=== PATIENT | female | born 1965 ===

== ENCOUNTER 2021-06-23 21:25 | Emergency (ER) | payer OTHER ==
--- NOTE | 2021-06-23 22:51 | Event Note ---
ED Screening Note Date of service: 06/23/21 Time: 22:49 ED Screening Note: Patient 55-year-old female with history of urostomy 1 year ago secondary to bladder CA , Patient states left flank pain radiating to suprapubic with urostomy donor site drainage purulent x1 week. Patient denies fevers however does endorse malaise nausea and abdominal pain. Symptoms are exacerbated by movement. Relieved by nothing tried. Patient not sure of urologist that performed procedure. This is second language patient is a Congolese-speaking son at bedside for translation. This initial assessment/diagnostic orders/clinical plan/treatment(s) is/are subject to change based on patients health status, clinical progression and re- assessment by fellow clinical providers in the ED. Further treatment and workup at subsequent clinical providers discretion. Patient/guardian urged not to elope from the ED as their condition may be serious if not clinically assessed and managed. Initial orders include: CMP, CBC, Lactic Acid, UA, BCx2 , urine culture, IV ,
[2021-06-23 23:21] LABS: Basophils % (Auto) 0.2 % (0.0-1.8); Eosinophils # (Auto) 0.1 K/mm3 (0.0-0.4); Eosinophils % (Auto) 0.7 % (0.0-4.3); Hematocrit 34.8 % (30.3-42.9); Lymphocytes # (Auto) 2.8 K/mm3 (1.2-5.4); Lymphocytes % (Auto) 24.3 % (13.4-35.0); Mean Corpuscular HGB Conc 34 % (30-34); Mean Corpuscular Volume 87 fl (79-97); Monocytes # (Auto) 0.7 K/mm3 (0.0-0.8); Monocytes % (Auto) 6.1 % (0.0-7.3); Platelet Count 317 K/mm3 (140-440); Red Blood Count 4.01 M/mm3 (3.65-5.03); Red Cell Distribution Width 13.8 % (13.2-15.2)
[2021-06-23 23:43] LABS: Calcium 10.1 mg/dL (8.4-10.2)
[2021-06-24] MEDS ORDERED: cefTRIAXone/NS 2 GM/100 ML 2 GM/100 ML BAG IV ONE (00:04)
[2021-06-24] MEDS ORDERED: SODIUM CHLORIDE 0.9% 1000 ML IV SOLN IV ONE (00:04)
[2021-06-24 00:12] LABS: Bacteria,Urine 1+ /HPF (Negative); Bilirubin,Urine NEG (Negative); Blood,Urine LG (Negative); Color,Urine Yellow (Yellow); Mucus,Urine FEW /HPF; Urobilinogen,Urine < 2.0 mg/dL (<2.0)
[2021-06-24 00:13] LABS: WBC,Urine > 182.0 /HPF (0.0-6.0)
--- NOTE | 2021-06-24 00:36 | Emergency Department Report ---
ED Abdominal Pain HPI - General Chief Complaint: Back Pain/Injury Stated Complaint: PAIN ON THE SIDE PUI?: No Time Seen by Provider: 06/24/21 00:02 Source: patient Mode of arrival: Ambulatory Limitations: No Limitations - History of Present Illness Initial Comments: Patient is a 55-year-old female that presents emergency room for left flank pain. Patient states that the pain has been going on for 2 to 3 weeks. Patient states she had surgery in August. Patient states she has had pain since the surgery. Patient states for 2 weeks she had a nephrostomy tube. Patient states approximately 2 to 3 weeks ago she developed a purulent discharge coming from the nephrostomy tube hole in her left flank. Patient states the pain is severe. Patient states she is having fever and chills. Patient denies cough. Patient denies chest pain. Patient denies shortness of breath. Patient denies recent travel. Patient denies recent international travel. Patient denies exposure to the novel coronavirus. Patient denies sick contacts. Patient denies cough. Patient denies diarrhea. Patient denies coming in contact with anybody with symptoms of the novel coronavirus. MD Complaint: flank pain -: Gradual, week(s) Location: L flank Radiation: none Migration to: no migration Severity: severe Severity scale (0 -10): 10 Quality: stabbing Consistency: constant Improves With: rest Worsens With: movement Associated Symptoms: fever, dysuria. denies: nausea, vomiting, diarrhea, chills, constipation, hematemesis, hematochezia, melena, hematuria, syncope - Related Data LMP (females 10-50): unknown Home Medications Medication Instructions Recorded Confirmed Last Taken Loratadine 10 mg PO DAILY 06/24/21 06/24/21 Unknown Meloxicam [Mobic] 15 mg PO DAILY 06/24/21 06/24/21 Unknown Omeprazole 20 mg PO DAILY 06/24/21 06/24/21 Unknown glipiZIDE [Glucotrol] 5 mg PO BID 06/24/21 06/24/21 Unknown lisinopriL [Lisinopril] 10 mg PO DAILY 06/24/21 06/24/21 Unknown traZODone [Desyrel] 50 mg PO QHS 06/24/21 06/24/21 Unknown Allergies Allergy/AdvReac Type Severity Reaction Status Date / Time No Known Allergies Allergy Unverified 06/23/21 21:46 ED Review of Systems ROS: Stated complaint: PAIN ON THE SIDE Other details as noted in HPI Constitutional: chills, fever, malaise Eyes: denies: eye pain, eye discharge, vision change ENT: denies: ear pain, throat pain Respiratory: denies: cough, shortness of breath, wheezing Cardiovascular: denies: chest pain, palpitations Endocrine: no symptoms reported Gastrointestinal: as per HPI, abdominal pain. denies: nausea, diarrhea Genitourinary: denies: urgency, dysuria, discharge Musculoskeletal: denies: back pain, joint swelling, arthralgia Skin: denies: rash, lesions Neurological: denies: headache, weakness, paresthesias Psychiatric: denies: anxiety, depression Hematological/Lymphatic: denies: easy bleeding, easy bruising ED Past Medical Hx - Past Medical History Previous Medical History?: Yes Additional medical history: Renal cell carcinoma, nephrostomy tube - Surgical History Past Surgical History?: Yes Additional Surgical History: Kidney surgery - Family History Family history: no significant - Social History Smoking Status: Never Smoker Substance Use Type: None - Medications Home Medications: Home Medications Medication Instructions Recorded Confirmed Last Taken Type Loratadine 10 mg PO DAILY 06/24/21 06/24/21 Unknown History Meloxicam [Mobic] 15 mg PO DAILY 06/24/21 06/24/21 Unknown History Omeprazole 20 mg PO DAILY 06/24/21 06/24/21 Unknown History glipiZIDE [Glucotrol] 5 mg PO BID 06/24/21 06/24/21 Unknown History lisinopriL [Lisinopril] 10 mg PO DAILY 06/24/21 06/24/21 Unknown History traZODone [Desyrel] 50 mg PO QHS 06/24/21 06/24/21 Unknown History ED Physical Exam - General Limitations: No Limitations General appearance: alert, in no apparent distress - Head Head exam: Present: atraumatic, normocephalic - Eye Eye exam: Present: normal appearance - ENT ENT exam: Present: mucous membranes moist - Neck Neck exam: Present: normal inspection - Respiratory Respiratory exam: Present: normal lung sounds bilaterally. Absent: respiratory distress - Cardiovascular Cardiovascular Exam: Present: regular rate, normal rhythm. Absent: systolic murmur, diastolic murmur, rubs, gallop - GI/Abdominal GI/Abdominal exam: Present: soft, tenderness (Left flank tenderness), normal bowel sounds - Extremities Exam Extremities exam: Present: normal inspection - Back Exam Back exam: Present: CVA tenderness (L), other (Purulent discharge from the surgical site in the left back.) - Neurological Exam Neurological exam: Present: alert, oriented X3 - Psychiatric Psychiatric exam: Present: normal affect, normal mood - Skin Skin exam: Present: warm, dry, intact, normal color. Absent: rash ED Course Vital Signs 06/23/21 06/23/21 06/24/21 21:45 23:40 00:01 Temperature 98.3 F 98.7 F Pulse Rate 105 H 103 H 107 H Respiratory 16 22 16 Rate Blood Pressure 151/83 126/63 Blood Pressure 153/86 [Left] O2 Sat by Pulse 98 98 99 Oximetry 06/24/21 06/24/21 06/24/21 01:13 02:01 03:01 Temperature Pulse Rate 113 H 95 H 92 H Respiratory 20 18 17 Rate Blood Pressure 120/69 142/74 Blood Pressure [Left] O2 Sat by Pulse 98 97 96 Oximetry - Reevaluation(s) Reevaluation #1: Patient heart rate unchanged. Patient blood pressure stable. Patient is afebrile. Patient still complaining of pain. Patient will be given Dilaudid and Zofran. 06/24/21 001:38 Reevaluation #2: Patient states her pain is better. 06/24/21 02:02 Reevaluation #3: Patient had her urologic care at another facility. Patient will be transferred to [facility] where her care has been done in the past for continuity. I discussed all results and clinical findings with patient. I discussed plan of care with patient. Patient agrees with plan of care. Patient is stable for transfer. 06/24/21 02:39. - Consultations Consultation #1: I discussed the case with the hospitalist at [facility]. The hospitalist, Dr. Lipscomb Has accepted the patient to be transferred as a direct admit. 06/24/21 02:30 ED Medical Decision Making - Lab Data Result diagrams: 06/23/21 23:03 06/23/21 23:03 - Radiology Data Radiology results: report reviewed CT ABDOMEN AND PELVIS WITHOUT AND WITH CONTRAST INDICATION: Pt complains of LEFT flank pain radiates to Suprapubic.. TECHNIQUE: Axial CT images were obtained through the abdomen and pelvis before and after 100 cc IV contrast. All [address] scans at this location are performed using CT dose reduction for ALARA by means of automated exposure control. COMPARISON: None available. FINDINGS: LOWER CHEST: No significant abnormality. Calcified right middle lobe granuloma. Linear scar/atelectasis both lower lung mercer. LIVER: No significant abnormality. GALLBLADDER: No significant abnormality. BILE DUCTS: No significant abnormality. PANCREAS: No significant abnormality. SPLEEN: No significant abnormality. ADRENALS: No significant abnormality. RIGHT KIDNEY and URETER: No significant abnormality. LEFT KIDNEY and URETER: Moderate left-sided hydronephrosis with delayed nephrogram and no contrast in the dilated intrarenal collecting system on delayed images. No ureteral calculi. 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 STOMACH and SMALL BOWEL: No significant abnormality. COLON: No significant abnormality. APPENDIX: No significant abnormality. PERITONEUM: No free fluid. No free air. No fluid collection. LYMPH NODES: Enlarged left para-aortic nodes measuring 11 mm short axis diameter. AORTA and ARTERIES: No significant abnormality. IVC and VEINS: No significant abnormality. URINARY BLADDER: No significant abnormality. REPRODUCTIVE ORGANS: No significant abnormality. ADDITIONAL FINDINGS: 1.8 cm hypodense lesion left iliopsoas muscle delayed series 8 image 48. SKELETAL SYSTEM: No significant abnormality. IMPRESSION: 1. Abnormal enhancement left mid ureter with obstruction with moderate left hydronephrosis and enhancing left retroperitoneal adenopathy likely secondary to patient's history of transitional cell cancer. 2. Scarring left flank from previous nephrostomy removal. 3. Small 1.8 cm fluid collection left iliopsoas muscle could represent urinoma, seroma or abscess - Medical Decision Making Patient is a 55-year-old female who presents emergency room with complaints of right flank pain and purulent discharge from the nephrostomy site. Patient does not have nephrostomy at this time. Patient was removed in the past. Patient s till has the stoma. Patient's symptoms been going on for couple weeks and worsening. Patient also complained to be febrile. Patient had a code sepsis after initial valuation. Patient given adequate fluids and early antibiotics. Patient also given Dilaudid and Zofran for pain. Patient responded well to treatment. Patient was found to be afebrile but tachycardic. Patient had a normal blood pressure. Patient had a CT scan which shows a obstructive nephropathy as well as pyelonephritis. Patient had her urologic care at [facility]. This facility does not have urology support. I discussed the case with [facility] and they accepted the patient be transferred to [facility] as a direct admit. The hospitalist has accepted the patient for the urologist. Critical care time documented due to the multiple reassessments, prolonged time at the bedside, interpretation of diagnostics and labs and discussion with accepting facility.. - Differential Diagnosis Flank pain, pyelonephritis, UTI, kidney stone Critical Care Time: Yes Critical care time in (mins) excluding proc time.: 35 Critical care attestation.: If time is entered above; I have spent that time in minutes in the direct care of this critically ill patient, excluding procedure time. Critical Care Time: 35 minutes ED Disposition Clinical Impression: Flank pain, Left flank pain, Pyelonephritis of left kidney, Dehydration UTI (urinary tract infection) Qualifiers: Urinary tract infection type: acute cystitis Hematuria presence: with hematuria Qualified Code(s): N30.01 - Acute cystitis with hematuria Disposition: 02 [facility]ORT TERM [facility]OSP[facility] Is pt being admited?: No Does the pt Need Aspirin: No Condition: Critical Referrals: PRIMARY CARE, [Primary Care Provider] - 3-5 Days Time of Disposition: 02:44
[2021-06-24] MEDS ORDERED: ONDANSETRON 4 MG/2 ML INJ IV ONE (01:36)
[2021-06-24] MEDS ORDERED: HYDROmorphone 1 MG/1 ML INJ IV ONE (01:36)
--- NOTE | 2021-06-24 01:42 | Cat Scan Report ---
CT ABDOMEN AND PELVIS WITHOUT AND WITH CONTRAST INDICATION: Pt complains of LEFT flank pain radiates to Suprapubic.. TECHNIQUE: Axial CT images were obtained through the abdomen and pelvis before and after 100 cc IV contrast. Al l CT scans at this location are performed using CT dose reduction for ALARA by means of automated exp osure control. COMPARISON: None available. FINDINGS: LOWER CHEST: No significant abnormality. Calcified right middle lobe granuloma. Linear scar/atelectas is both lower lung mercer. LIVER: No significant abnormality. GALLBLADDER: No significant abnormality. BILE DUCTS: No significant abnormality. PANCREAS: No significant abnormality. SPLEEN: No significant abnormality. ADRENALS: No significant abnormality. RIGHT KIDNEY and URETER: No significant abnormality. LEFT KIDNEY and URETER: Moderate left-sided hydronephrosis with delayed nephrogram and no contrast in the dilated intrarenal collecting system on delayed images. No ureteral calculi. 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 STOMACH and SMALL BOWEL: No significant abnormality. COLON: No significant abnormality. APPENDIX: No significant abnormality. PERITONEUM: No free fluid. No free air. No fluid collection. LYMPH NODES: Enlarged left para-aortic nodes measuring 11 mm short axis diameter. AORTA and ARTERIES: No significant abnormality. IVC and VEINS: No significant abnormality. URINARY BLADDER: No significant abnormality. REPRODUCTIVE ORGANS: No significant abnormality. ADDITIONAL FINDINGS: 1.8 cm hypodense lesion left iliopsoas muscle delayed series 8 image 48. SKELETAL SYSTEM: No significant abnormality. IMPRESSION: 1. Abnormal enhancement left mid ureter with obstruction with moderate left hydronephrosis and enhanc ing left retroperitoneal adenopathy likely secondary to patient's history of transitional cell cancer . 2. Scarring left flank from previous nephrostomy removal. 3. Small 1.8 cm fluid collection left iliopsoas muscle could represent urinoma, seroma or abscess Signer Name: Fausto Miranda MD Signed: 06/24/2021 1:38 AM Workstation Name: [id number]
[2021-06-24 03:07] VITALS: BP 142/74
== END 2021-06-24 03:32 | disposition short-term general hospital (02) ==
LOC: ED 21:25
DX: N12 Tubulo-interstitial nephritis, not specified as acute or chronic (principal); E86.0 Dehydration; R10.9 Unspecified abdominal pain; N39.0 Urinary tract infection, site not specified; R50.9 Fever, unspecified; Z98.890 Other specified postprocedural states
CPT/HCPCS: 36415; 74178; 80053; 81001; 82140; 85025; 87040; 87086; 96365; 96375; 99291; J0696; J1170; J2405; J7030; Q9967